=== PATIENT | male | born 1940 | race Caucasian/White ===

== ENCOUNTER 2017-07-18 01:10 | Inpatient (IN) | payer MEDICARE, OTHER ==
[~2017-07-18] VITALS: Ht 162.6 cm; Wt 56.0 kg
[2017-07-18] VITALS (26 sets, daily range): BP systolic 83–191; BP diastolic 58–102; PULSE 66–134; RESP 14–28; TEMP 97.5–101.9; O2SAT 91–100
[~2017-07-18 01:10] MED LIST: ALBU0.086 NEB; ALLE10TA12 PO; ASPI1TAB7 PO; ATOR40TA PO; BENZ100 PO; CALTCHW4 PO; DORZO2%O LEFT EYE; GUAI600 PO; LATA0.00 EACH EYE; LEVA750T PO; METO50TA PO; PERI8.6T PO; PRED20 PO; RANI150 PO; ROBIDMS PO; SYMB160A INH; THERM PO; TIOT18I INH; Z.0.OXYGENDME NC; [UNRECOGNIZED DRUG - CODE] PO
[2017-07-18 01:56] LABS: AUTOMATED NEUTROPHIL # 17.7 TH/MM3 (1.8-7.7); BASOPHIL # 0.1 TH/MM3 (0-0.2); BASOPHIL % 0.7 % (0.0-2.0); EOSINOPHIL # 0.1 TH/MM3 (0-0.4); EOSINOPHIL % 0.3 % (0.0-4.0); HEMOGLOBIN 15.4 GM/DL (13.0-17.0); LYMPH % 9.2 % (9.0-44.0); MEAN CELL VOLUME 92.2 FL (80.0-100.0); MEAN CORPUSCULAR HEMOGLOBIN 30.9 PG (27.0-34.0); MEAN CORPUSCULAR HGB CONC 33.5 % (32.0-36.0); MONO % 6.5 % (0.0-8.0); MONOCYTE # 1.4 TH/MM3 (0-0.9); NEUT % 83.3 % (16.0-70.0); PLATELET COUNT 302 TH/MM3 (150-450); RED BLOOD COUNT 4.99 MIL/MM3 (4.50-5.90); RED CELL DISTRIBUTION WIDTH 14.5 % (11.6-17.2); WHITE BLOOD COUNT 21.3 TH/MM3 (4.0-11.0)
--- NOTE | 2017-07-18 02:02 | RADRPT ---
EXAM DATE/TIME: 07/18/2017 01:46 [facility] COMPARISON: CHEST PA & LAT, September 22, 2014, 20:48. CHEST SINGLE AP, September 30, 2015, 13:23. INDICATIONS : Wheezing. MEDICAL HISTORY : Hypertension. Chronic obstructive pulmonary disease. Diabetes mellitus type II. SURGICAL HISTORY : None. ENCOUNTER: Initial ACUITY: 1 day PAIN SCORE: 0/10 LOCATION: Bilateral chest FINDINGS: The lungs are clear without infiltrate, nodule, or mass. On the lateral projection there is irregular density overlapping the cardiac shadow slightly different as compared to the prior study from 2014, however probably overlap of pulmonary vasculature. Chronic COPD is identified with scattered areas of scarring in the lungs. There is no appreciable pleural effusion for technique. Heart and mediastin um are unremarkable. CONCLUSION: No acute cardiopulmonary disease. Kira David MD on July 18, 2017 at 1:59 Board Certified Radiologist. This report was verified electronically.
[2017-07-18 02:05] LABS: CHLORIDE 103 MEQ/L (98-107); SODIUM (NA) 138 MEQ/L (136-145)
[2017-07-18] MEDS ORDERED: PRED10 PO (02:05)
[2017-07-18] MEDS ORDERED: ATOR40TA16 PO (02:07)
[2017-07-18] MEDS ORDERED: SPIRCAP INH (02:07)
[2017-07-18 02:08] LABS: CALCIUM 9.5 MG/DL (8.5-10.1)
[2017-07-18 02:09] LABS: ALBUMIN 3.2 GM/DL (3.4-5.0); BICARBONATE 28.5 MEQ/L (21.0-32.0); BLOOD UREA NITROGEN 18 MG/DL (7-18); GLUCOSE,RANDOM 104 MG/DL (74-106); MAGNESIUM 1.9 MG/DL (1.5-2.5)
[2017-07-18] MEDS ORDERED: SYMB160A INH (02:11)
[2017-07-18 02:12] LABS: ALT (GPT) 29 U/L (12-78); AST (GOT) 22 U/L (15-37); CREATININE 0.97 MG/DL (0.60-1.30); GLOMERULAR FILTRATION RATE 76 ML/MIN (>89)
[2017-07-18 02:13] LABS: BANDS 9 % (0-6); LYMPHOCYTES 10 % (9-44); MONOCYTES 6 % (0-8); NEUTROPHIL # MANUAL DIFF 17.9 TH/MM3 (1.8-7.7); POLYS (SEG NEUTROPHILS) 75 % (16-70); TOTAL BILIRUBIN ADULT 0.4 MG/DL (0.2-1.0)
[2017-07-18 02:14] LABS: TOTAL PROTEIN 7.5 GM/DL (6.4-8.2)
[2017-07-18 02:15] LABS: ALKALINE PHOSPHATASE 103 U/L (45-117)
[2017-07-18] MEDS ORDERED: DOCU100C15 PO (02:22)
[2017-07-18] MEDS ORDERED: METO1TAB43 PO (02:22)
[2017-07-18 02:50] LABS: BILIRUBIN, URINE NEG (NEG); BLOOD, URINE NEG (NEG); GLUCOSE,URINE NEG (NEG); KETONE, URINE NEG (NEG); NITRITE,URINE NEG (NEG); PH, URINE 5.5 (5.0-8.5); URINE LEUKOCYTE ESTERASE NEG (NEG)
[2017-07-18 02:53] LABS: URINE COLOR YELLOW (YELLW/STRAW)
[2017-07-18 02:54] LABS: RBC, URINE 0-2 /hpf (0-3); SQUAMOUS EPITHELIAL CELL URINE 0-5 /hpf (0-5); WBC, URINE 0-2 /hpf (0-5)
--- NOTE | 2017-07-18 03:10 | PD ---
HPI Chief Complaint: Respiratory Symptoms Time Seen by Provider: 01:20 Travel History International Travel<30 days: No Contact w/Intl Traveler<30days: No Traveled to known affect area: No History of Present Illness HPI The patient is a 76-year-old male who has a history of COPD and is followed by the CT for his COPD. He no longer smokes. He sees Roshan Bashir in [place] through the CT. He developed bronchitis and then pneumonia in March and 2 weeks [address] and saw Dr[address] Bashir and he was apparently free of pneumonia with a normal CT scan. Tonight he started getting short of breath with a dry cough and fever and he was developing the same symptoms that he gets with bronchitis. The patient completed the amoxicillin but is still on prednisone. The patient refuses albuterol treatments. He states they make him worse. He refused him in the field and refused them here. PFSH Past Medical History Hx Anticoagulant Therapy: Yes (asa 81mg) Arthritis: Yes Asthma: No Heart Rhythm Problems: No Cancer: No Cardiovascular Problems: Yes (htn on meds, hx of OK) High Cholesterol: Yes Chest Pain: No Congestive Heart Failure: No COPD: Yes Cerebrovascular Accident: No Diabetes: Yes (pre-diabetes) Patient Takes Glucophage: No Diminished Hearing: No Gastrointestinal Disorders: Yes (SPASTIC COLON) Glaucoma: Yes Genitourinary: No Headaches: No Hypertension: Yes Immune Disorder: No Implanted Vascular Access Dvce: No Musculoskeletal: No Neurologic: No Psychiatric: No Reproductive: No Respiratory: Yes (copd uses oxygen at home) Migraines: No Seizures: No Sleep Apnea: No Tetanus Vaccination: < 5 Years Influenza Vaccination: Yes Past Surgical History Abdominal Surgery: No Cardiac Surgery: No Ear Surgery: No Endocrine Surgery: No Eye Surgery: No Genitourinary Surgery: No Gynecologic Surgery: No Neurologic Surgery: No Oral Surgery: No Thoracic Surgery: No Tonsillectomy: Yes Other Surgery: Yes (tonsillectomy) Social History Alcohol Use: No Tobacco Use: No (QUIT 2002) Substance Use: No Allergies-Medications (Allergen,Severity, Reaction): Coded Allergies: albuterol (Verified Allergy, Intermediate, 07/18/17) bronchospasm codeine (Verified Allergy, Unknown, made him crazy, 07/18/17) Uncoded Allergies: perfume fragrances (Allergy, Severe, Shortness of Breath, 09/30/15) . Reported Meds & Prescriptions Reported Meds & Active Scripts Active Reported Metoprolol Succinate ER 24 HR (Metoprolol Succinate) 100 Mg Tab 100 Mg PO DAILY Docusate Sodium 100 Mg Cap 100 Mg PO BID Symbicort Inh (Budesonide/Formoterol Fumarate) 160-4.5 Mcg/Act Aero 2 Puff INH Q12HR Spiriva Handihaler (Tiotropium Inh) 18 Mcg Cap 18 Mcg INH DAILY 1 capsule = 18 mcg Atorvastatin (Atorvastatin Calcium) 40 Mg Tab 40 Mg PO HS Prednisone 10 Mg Tab 10 Mg PO DAILY Review of Systems Except as stated in HPI: all other systems reviewed are Neg Physical Exam Narrative GENERAL: The patient is alert, oriented 3 in moderate respiratory distress initially. After oxygen the patient was much more comfortable. His vital signs show temperature 102.9, blood pressure 191/102, pulse rate of 134 and respirations 28 and oximetry on 3 L nasal cannula was 99%. On room air, his oximetry was 88%. SKIN: Focused skin assessment warm/dry. HEAD: Atraumatic. Normocephalic. EYES: Pupils equal and round. No scleral icterus. No injection or drainage. ENT: No nasal bleeding or discharge. Mucous membranes pink and moist. NECK: Trachea midline. No JVD. CARDIOVASCULAR: Regular rate and rhythm. No murmur appreciated. RESPIRATORY: No accessory muscle use. Clear to auscultation. Breath sounds equal but decreased bilaterally. GASTROINTESTINAL: Abdomen soft, non-tender, nondistended. Hepatic and splenic margins not palpable. MUSCULOSKELETAL: No obvious deformities. No clubbing. No cyanosis. No edema. NEUROLOGICAL: Awake and alert. No obvious cranial nerve deficits. Motor grossly within normal limits. Normal speech. PSYCHIATRIC: Appropriate mood and affect; insight and judgment normal. Data Data Last Documented VS Vital Signs Date Time Temp Pulse Resp B/P (MAP) Pulse Ox O2 Delivery O2 Flow Rate FiO2 07/18/17 03:20 98.6 99 22 133/88 (103) 96 Nasal Cannula 2.00 Orders Orders Sepsis Workup Initiated (07/18/17 ) Complete Blood Count With Diff (07/18/17 01:15) Comprehensive Metabolic Panel (07/18/17 01:15) Lactic Acid Sepsis Protocol (07/18/17 01:15) Blood Culture (07/18/17 01:15) Iv Access Insert/Monitor (07/18/17 01:15) Oxygen Administration (07/18/17 01:15) Oximetry (07/18/17 01:15) Blood Glucose (07/18/17 01:15) Chest, Pa & Lat (07/18/17 01:15) Ecg Monitoring (07/18/17 01:15) Electrocardiogram (07/18/17 01:15) Sepsis Workup Initiated (07/18/17 ) Electrocardiogram (07/18/17 01:20) Urinalysis - C+S If Indicated (07/18/17 01:20) Influenzae A/B Antigen (07/18/17 01:20) Arterial Blood Gas (Abg) (07/18/17 01:20) Magnesium (Mg) (07/18/17 01:15) Methylprednisolone So Succ Inj (Solumedr (07/18/17 06:00) Vancomycin Consult Pharmacy (Vancomycin (07/18/17 03:15) Cefepime Inj (Maxipime Inj) (07/18/17 04:00) Admit To Inpatient (07/18/17 ) Vital Signs (Adult) Q4H (07/18/17 03:01) Activity Oob With Assistance (07/18/17 03:01) Corridor [employer]evelopment Manager / Telemetry .CONTINUOUS (07/18/17 03:01) Intake + Output ELIDA.QSHIFT (07/18/17 03:01) Diet Heart Healthy (07/18/17 Breakfast) Sodium Chloride 0.9% Flush (Ns Flush) (07/18/17 03:15) Sodium Chloride 0.9% Flush (Ns Flush) (07/18/17 09:00) Ondansetron Inj (Zofran Inj) (07/18/17 03:15) Comprehensive Metabolic Panel (07/19/17 06:00) Complete Blood Count With Diff (07/19/17 06:00) Enoxaparin Inj (Lovenox Inj) (07/18/17 09:00) Acetaminophen (Tylenol) (07/18/17 03:15) Morphine Inj (Morphine Inj) (07/18/17 03:15) Docusate Sodium-Senna (Patsy-Colace) (07/18/17 09:00) Magnesium Hydroxide Liq (Milk Of Magnesi (07/18/17 03:15) Sennosides (Senokot) (07/18/17 03:15) Bisacodyl Supp (Dulcolax Supp) (07/18/17 03:15) Lactulose Liq (Lactulose Liq) (07/18/17 03:15) Inpatient Certification (07/18/17 ) Ipratropium Neb (Atrovent Neb) (07/18/17 03:15) Atorvastatin (Lipitor) (07/18/17 21:00) Budeson-Formot 160-4.5 Mcg Inh (Symbicor (07/18/17 09:00) Tiotropium Inh (Spiriva Inh) (07/18/17 09:00) Metoprolol Succinate Er (Toprol Xl) (07/18/17 09:00) Vancomycin 1 Gm/200 Ml Inj (Vancomycin 1 (07/18/17 05:00) Misc. Nursing Information (07/21/17 04:45) Sodium Chlor 0.9% 1000 Ml Inj (Ns 1000 M (07/18/17 03:30) Vancomycin Trough (07/21/17 04:45) Labs Laboratory Tests Test 07/18/17 01:41 07/18/17 01:58 07/18/17 02:27 White Blood Count 21.3 TH/MM3 Red Blood Count 4.99 MIL/MM3 Hemoglobin 15.4 GM/DL Hematocrit 46.0 % Mean Corpuscular Volume 92.2 FL Mean Corpuscular Hemoglobin 30.9 PG Mean Corpuscular Hemoglobin Concent 33.5 % Red Cell Distribution Width 14.5 % Platelet Count 302 TH/MM3 Mean Platelet Volume 9.0 FL Neutrophils (%) (Auto) 83.3 % Lymphocytes (%) (Auto) 9.2 % Monocytes (%) (Auto) 6.5 % Eosinophils (%) (Auto) 0.3 % Basophils (%) (Auto) 0.7 % Neutrophils # (Auto) 17.7 TH/MM3 Lymphocytes # (Auto) 2.0 TH/MM3 Monocytes # (Auto) 1.4 TH/MM3 Eosinophils # (Auto) 0.1 TH/MM3 Basophils # (Auto) 0.1 TH/MM3 CBC Comment AUTO DIFF Differential Total Cells Counted 100 Neutrophils % (Manual) 75 % Band Neutrophils % 9 % Lymphocytes % 10 % Monocytes % 6 % Neutrophils # (Manual) 17.9 TH/MM3 Differential Comment FINAL DIFF MANUAL Platelet Estimate NORMAL Platelet Morphology Comment NORMAL Red Cell Morphology Comment NORMAL Blood Urea Nitrogen 18 MG/DL Creatinine 0.97 MG/DL Random Glucose 104 MG/DL Total Protein 7.5 GM/DL Albumin 3.2 GM/DL Calcium Level 9.5 MG/DL Magnesium Level 1.9 MG/DL Alkaline Phosphatase 103 U/L Aspartate Amino Transf (AST/SGOT) 22 U/L Alanine Aminotransferase (ALT/SGPT) 29 U/L Total Bilirubin 0.4 MG/DL Sodium Level 138 MEQ/L Potassium Level 3.4 MEQ/L Chloride Level 103 MEQ/L Carbon Dioxide Level 28.5 MEQ/L Anion Gap 7 MEQ/L Estimat Glomerular Filtration Rate 76 ML/MIN Lactic Acid Level 1.0 mmol/L Blood Gas Puncture Site RT RADIAL Blood Gas Patient Temperature 98.6 Blood Gas HCO3 25 mmol/L Blood Gas Base Excess 1.3 mmol/L Blood Gas Oxygen Saturation 89 % Arterial Blood pH 7.46 Arterial Blood Partial Pressure CO2 36 mmHG Arterial Blood Partial Pressure O2 59 mmHG Arterial Blood Oxygen Content 18.1 Vol % Arterial Blood Carboxyhemoglobin 1.6 % Arterial Blood Methemoglobin 1.0 % Blood Gas Hemoglobin 14.5 G/DL Blood Gas Inspired Oxygen 21 % Urine Color YELLOW Urine Turbidity CLEAR Urine pH 5.5 Urine Specific Barnhart 1.015 Urine Protein NEG mg/dL Urine Glucose (UA) NEG mg/dL Urine Ketones NEG mg/dL Urine Occult Blood NEG Urine Nitrite NEG Urine Bilirubin NEG Urine Leukocyte Esterase NEG Urine RBC 0-2 /hpf Urine WBC 0-2 /hpf Urine Squamous Epithelial Cells 0-5 /hpf Urine Bacteria NONE /hpf Microscopic Urinalysis Comment CULT NOT INDICATED MDM Medical Decision Making Medical Screen Exam Complete: Yes Emergency Medical Condition: Yes Medical Record Reviewed: Yes Interpretation(s) The blood gases on room air Differential Diagnosis Bronchitis, pneumonia, hypoxemia, sepsis, electrolyte disorder, influenza Narrative Course The patient has sepsis, bronchitis with hypoxemia Sepsis Criteria SIRS Criteria (2 or more): Temp > 100.9 or < 96.8, Heart rate over 90, RR > 20 or PaCO2 < 32, WBC > 74660, < 4000 or > 10% bands Sepsis Criteria (SIRS+source): Infect source susp/known Diagnosis Primary Impression: Sepsis Additional Impressions: COPD with acute exacerbation Hypoxemia Admitting Information Admitting Physician Requests: Admit Juan Luis Carlton MD Jul 18, 2017 03:10
[2017-07-18] MEDS ORDERED: BISACODYL 10 MG SUPP RECTAL PRN (03:15)
[2017-07-18] MEDS ORDERED: ONDANSETRON HCL 4 MG/2 ML VIAL IVP PRN (03:15)
[2017-07-18] MEDS ORDERED: ACETAMINOPHEN 325 MG TAB PO PRN (03:15)
[2017-07-18] MEDS ORDERED: Vancomycin Consult Pharmacy 1 EA OTHER SCH (03:15)
[2017-07-18] MEDS ORDERED: LACTULOSE SYRUP 20 GM/30 ML CUP PO PRN (03:15)
[2017-07-18] MEDS ORDERED: RESP: IPRATROPIUM 0.5 MG/2.5 ML NEB NEB PRN (03:15)
[2017-07-18] MEDS ORDERED: SENNOSIDES 8.6 MG TAB PO PRN (03:15)
[2017-07-18] MEDS ORDERED: MORPHINE SULFATE 2 MG/ML INJ IV PUSH PRN (03:15)
[2017-07-18] MEDS ORDERED: MAGNESIUM HYDROXIDE SUSP 30 ML CUP PO PRN (03:15)
[2017-07-18] MEDS ORDERED: SODIUM CHLORIDE 0.9% FLUSH 10 ML FLUSH IV FLUSH PRN (03:15)
[2017-07-18] MEDS: SODIUM CHLOR 0.9% 1000 ML INJ 1,000 ML IV SCH ×2 (03:45→04:50)
[2017-07-18] MEDS ORDERED: IOHEXOL 350 MG/ML 10 ML VIAL (for RAD DIAG) IVCONTRAST ONE (04:24)
[2017-07-18] MEDS: CEFEPIME INJ 1,000 MG in SODIUM CHLORIDE 0.9% INJ 100 ML IV SCH ×2 (04:26→15:54)
--- NOTE | 2017-07-18 04:34 | RADRPT ---
EXAM DATE/TIME: 07/18/2017 04:13 [facility] COMPARISON: No previous studies available for comparison. INDICATIONS : Shortness of breath. IV CONTRAST: 70 cc Omnipaque 350 (iohexol) IV RADIATION DOSE: 9.13 CTDIvol (mGy) MEDICAL HISTORY : Hypertension. Chronic obstructive pulmonary disease. Diabetes mellitus type 1. SURGICAL HISTORY : None. ENCOUNTER: Initial ACUITY: 1 day PAIN SCALE: 0/10 LOCATION: chest TECHNIQUE: Volumetric scanning of the chest was performed using a pulmonary embolism protocol MIP images were re constructed. Using automated exposure control and adjustment of the mA and/or kV according to patien t size, radiation dose was kept as low as reasonably achievable to obtain optimal diagnostic quality images. DICOM format image data is available electronically for review and comparison. Follow-up recommendations for detected pulmonary nodules are based at a minimum on nodule size and pa tient risk factors according to Fleischner Society Guidelines. FINDINGS: Approximately 4-5 mm nodule is seen left lower lobe anterolaterally with slight infiltrate within merna gula. There is no evidence for PE for technique.there is a tiny pericardial effusion with multiple si mple cysts in the liver. There is no pleural effusion. No appreciable pathological adenopathy is see n within the mediastinum. CONCLUSION: 1. There is no evidence for PE for technique. 2. Tiny pericardial effusion and slight infiltrate within lingula. 3. Left lower lobe nodule, repeat noncontrast chest CT is suggested in 6 months as a conservative fol low up. Kira David MD on July 18, 2017 at 4:29 Board Certified Radiologist. This report was verified electronically.
[2017-07-18] MEDS: VANCOMYCIN 1 GM/200 ML PREMIX IV SCH (04:56)
[2017-07-18] MEDS ORDERED: CHLORHEXIDINE GLUCONATE 2 % 1 PACK (2 CLOTHS)(extra cloths) TOPICAL PRN (05:30)
[2017-07-18] MEDS: methylPREDNISolone SOD SUCC 40 MG/1 ML VIAL IV PUSH SCH ×4 (05:46→23:17)
[2017-07-18] MEDS ORDERED: DORZ2SOL EACH EYE (07:09)
[2017-07-18] MEDS ORDERED: ASPI81TA23 PO (07:11)
[2017-07-18] MEDS ORDERED: LATA0.002 EACH EYE (07:12)
[2017-07-18] MEDS ORDERED: BRIM0.155 EACH EYE (07:13)
[2017-07-18] MEDS ORDERED: GUAI400T32 PO (07:17)
[2017-07-18] MEDS ORDERED: PILO1SOL5 EACH EYE (07:17)
[2017-07-18] MEDS: DOCUSATE SODIUM 50 MG/SENNA 8.6 MG TAB PO SCH ×3 (09:00→20:12)
[2017-07-18] MEDS ORDERED: TIOTROPIUM BROMIDE 18 MCG INH INH SCH (09:00)
[2017-07-18] MEDS ORDERED: METOPROLOL SUCCINATE 50 MG EXTENDED RELEASE TAB PO SCH (09:00)
[2017-07-18] MEDS: ENOXAPARIN SODIUM 40 MG/0.4 ML SYRINGE SQ SCH (09:42)
[2017-07-18] MEDS: SODIUM CHLORIDE 0.9% FLUSH 10 ML FLUSH IV FLUSH SCH ×2 (09:43→20:03)
[2017-07-18] MEDS: BUDESONIDE-FORMOTEROL 160/4.5 MCG INHALER INH SCH ×2 (09:43→20:02)
--- NOTE | 2017-07-18 13:24 | HHI.HP ---
[facility] Service [facility] Primary Care Physician [facility] Admission Diagnosis sepsis, COPD with acute exacerbation, hypoxemia Diagnoses: Chief Complaint: Shortness of breath Travel History International Travel<30 Days: No Contact w/Intl Traveler <30 Da: No Traveled to Known Affected Are: No History of Present Illness This patient is a 76-year-old gentleman with a history of COPD. Worsening over the last several years he has developed intolerance to albuterol. Since that time he has been not going well. He has had pneumonia and bronchitis and has been on antibiotics and steroids. Patient has come to the emergency room with complaints of increased shortness of breath. The patient says that he has increased dyspnea on exertion and has had some minimal sputum. He thinks every time he decreases his steroids his symptoms get worse. Recently has been on between 5 and 10 mg of prednisone. 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 He follows up at the [place] [facility] [place] he says he gets significant bronchospasm with albuterol and no longer is able to take nebulizer and or handheld inhaler although he is adherent with Spiriva and Symbicort. Patient comes to the emergency room and was hypoxemic. This seemed to improved Review of Systems Constitutional: DENIES: Diaphoretic episodes, Fatigue, Fever, Weight gain, Weight loss, Chills, Dizziness, Change in appetite, Night Sweats Endocrine: DENIES: Heat/cold intolerance, Polydipsia, Polyuria, Polyphagia Eyes: DENIES: Blurred vision, Diplopia, Eye inflammation, Eye pain, Vision loss , Photosensitivity, Double Vision Ears, nose, mouth, throat: DENIES: Tinnitus, Hearing loss, Vertigo, Nasal discharge, Oral lesions, Throat pain, Hoarseness, Ear Pain, Running Nose, Epistaxis, Sinus Pain, Toothache, Odynophagia Respiratory: COMPLAINS OF: Shortness of breath, DENIES: Apneas, Cough, Snoring , Wheezing, Hemoptysis, Sputum production Cardiovascular: COMPLAINS OF: Dyspnea on Exertion Gastrointestinal: DENIES: Abdominal pain, Black stools, Bloody stools, Constipation, Diarrhea, Nausea, Vomiting, Difficulty Swallowing, Anorexia Musculoskeletal: DENIES: Joint pain, Muscle aches, Stiffness, Joint Swelling, Back pain, Neck pain Integumentary: DENIES: Abnormal pigmentation, Nail changes, Pruritus, Rash Hematologic/lymphatic: DENIES: Bruising, Lymphadenopathy Immunologic/allergic: DENIES: Eczema, Urticaria Neurologic: DENIES: Abnormal gait, Headache, Localized weakness, Paresthesias, Seizures, Speech Problems, Tremor, Poor Balance Psychiatric: DENIES: Anxiety, Confusion, Mood changes, Depression, Hallucinations, Agitation, Suicidal Ideation, Homicidal Ideation, Delusions Except as stated in HPI: all other systems reviewed are Neg Past Family Social History Past Medical History COPD Hypertension Past Surgical History Tonsillectomy Reported Medications Reviewed in the EMR Allergies: Coded Allergies: albuterol (Verified Allergy, Intermediate, 07/18/17) bronchospasm codeine (Verified Allergy, Unknown, made him crazy, 07/18/17) Uncoded Allergies: perfume fragrances (Allergy, Severe, Shortness of Breath, 09/30/15) . Active Ordered Medications Reviewed in the EMR Family History Mother from a stroke or heart attack in her 50s, father from old age in his 80s Social History Retired [employer], no current tobacco although he does have a 20 year history of tobacco No alcohol Physical Exam Vital Signs Vital Signs Date Time Temp Pulse Resp B/P (MAP) Pulse Ox O2 Delivery O2 Flow Rate FiO2 07/18/17 12:35 94 Room Air 07/18/17 12:00 98.3 79 16 120/79 (93) 94 07/18/17 12:00 79 07/18/17 11:00 75 25 94/59 (71) 97 07/18/17 10:00 96 20 105/68 (80) 100 07/18/17 10:00 80 07/18/17 09:00 82 19 93/61 (72) 100 07/18/17 08:00 97 Nasal Cannula 2.00 07/18/17 08:00 96 Nasal Cannula 2.00 07/18/17 08:00 98.2 82 18 99/66 (77) 100 07/18/17 08:00 92 07/18/17 07:00 92 17 107/65 (79) 100 07/18/17 06:00 97.5 100 22 140/85 (103) 100 07/18/17 06:00 100 07/18/17 05:15 07/18/17 05:03 105 18 118/76 (90) 97 Nasal Cannula 2.00 07/18/17 04:15 100 18 143/79 (100) 97 Nasal Cannula 07/18/17 03:20 98.6 99 22 133/88 (103) 96 Nasal Cannula 2.00 07/18/17 03:13 98.6 108 22 133/88 (103) 94 Room Air 07/18/17 02:15 96 Nasal Cannula 2.00 07/18/17 01:20 97 Nasal Cannula 2.00 07/18/17 01:20 97 Nasal Cannula 2.00 07/18/17 01:16 28 97 Nasal Cannula 2.00 07/18/17 01:15 101.9 134 28 191/102 (131) 99 Physical Exam GENERAL: This is a thin but well-developed gentleman who has pursed lipped breathing with conversation and short of breath with minimal exertion SKIN: No rashes, ecchymoses or lesions. Cool and dry. HEAD: Atraumatic. Normocephalic. No temporal or scalp tenderness. EYES: Pupils equal round and reactive. Extraocular motions intact. No scleral icterus. No injection or drainage. ENT: Nose without bleeding, purulent drainage or septal hematoma. Throat without erythema, tonsillar hypertrophy or exudate. Uvula midline. Airway patent. NECK: Trachea midline. No JVD or lymphadenopathy. Supple, nontender, no meningeal signs. CARDIOVASCULAR: Regular rate and rhythm without murmurs, gallops, or rubs. RESPIRATORY: Decreased air flow but no wheezes. Bilateral air flow is equal GASTROINTESTINAL: Abdomen soft, non-tender, nondistended. No hepato-splenomegaly , or palpable masses. No guarding. MUSCULOSKELETAL: Extremities without clubbing, cyanosis, or edema. No joint tenderness, effusion, or edema noted. No calf tenderness. Negative Homans sign bilaterally. NEUROLOGICAL: Awake and alert. Cranial nerves II through XII intact. Motor and sensory grossly within normal limits. Five out of 5 muscle strength in all muscle groups. Normal speech. Laboratory Laboratory Tests Test 07/18/17 01:41 07/18/17 01:58 07/18/17 02:27 07/18/17 06:01 White Blood Count 21.3 Red Blood Count 4.99 Hemoglobin 15.4 Hematocrit 46.0 Mean Corpuscular Volume 92.2 Mean Corpuscular Hemoglobin 30.9 Mean Corpuscular Hemoglobin Concent 33.5 Red Cell Distribution Width 14.5 Platelet Count 302 Mean Platelet Volume 9.0 Neutrophils (%) (Auto) 83.3 Lymphocytes (%) (Auto) 9.2 Monocytes (%) (Auto) 6.5 Eosinophils (%) (Auto) 0.3 Basophils (%) (Auto) 0.7 Neutrophils # (Auto) 17.7 Lymphocytes # (Auto) 2.0 Monocytes # (Auto) 1.4 Eosinophils # (Auto) 0.1 Basophils # (Auto) 0.1 CBC Comment AUTO DIFF Differential Total Cells Counted 100 Neutrophils % (Manual) 75 Band Neutrophils % 9 Lymphocytes % 10 Monocytes % 6 Neutrophils # (Manual) 17.9 Differential Comment FINAL DIFF MANUAL Platelet Estimate NORMAL Platelet Morphology Comment NORMAL Red Cell Morphology Comment NORMAL Blood Urea Nitrogen 18 Creatinine 0.97 Random Glucose 104 Total Protein 7.5 Albumin 3.2 Calcium Level 9.5 Magnesium Level 1.9 Alkaline Phosphatase 103 Aspartate Amino Transf (AST/SGOT) 22 Alanine Aminotransferase (ALT/SGPT) 29 Total Bilirubin 0.4 Sodium Level 138 Potassium Level 3.4 Chloride Level 103 Carbon Dioxide Level 28.5 Anion Gap 7 Estimat Glomerular Filtration Rate 76 Lactic Acid Level 1.0 Blood Gas Puncture Site RT RADIAL Blood Gas Patient Temperature 98.6 Blood Gas HCO3 25 Blood Gas Base Excess 1.3 Blood Gas Oxygen Saturation 89 Arterial Blood pH 7.46 Arterial Blood Partial Pressure CO2 36 Arterial Blood Partial Pressure O2 59 Arterial Blood Oxygen Content 18.1 Arterial Blood Carboxyhemoglobin 1.6 Arterial Blood Methemoglobin 1.0 Blood Gas Hemoglobin 14.5 Blood Gas Inspired Oxygen 21 Urine Color YELLOW Urine Turbidity CLEAR Urine pH 5.5 Urine Specific [place] 1.015 Urine Protein NEG Urine Glucose (UA) NEG Urine Ketones NEG Urine Occult Blood NEG Urine Nitrite NEG Urine Bilirubin NEG Urine Leukocyte Esterase NEG Urine RBC 0-2 Urine WBC 0-2 Urine Squamous Epithelial Cells 0-5 Urine Bacteria NONE Microscopic Urinalysis Comment CULT NOT INDICATED Date/Time Source Procedure Growth Status 07/18/17 01:47 Blood Peripheral Aerobic Blood Culture Pending Received 07/18/17 01:47 Blood Peripheral Anaerobic Blood Culture Pending Received 07/18/17 01:41 Nasal Aspirate Influenza Types A,B Antigen (JAMILA) - Final NEGATIVE FOR FLU A AND B ANTIGEN.... Complete Result Diagram: 07/18/17 0141 07/18/17 [address] Angiography 07/18/17 0344 Signed Impressions: Service Date/Time: Tuesday, July 18, 2017 04:13 - CONCLUSION: 1. There is no evidence for PE for technique. 2. Tiny pericardial effusion and slight infiltrate within lingula. 3. Left lower lobe nodule, repeat noncontrast chest CT is suggested in 6 months as a conservative follow up. Kira David MD Chest X-Ray 07/18/17 0115 Signed Impressions: Service Date/Time: Tuesday, July 18, 2017 01:46 - CONCLUSION: No acute cardiopulmonary disease. Kira David MD Capjosé antonio VTE Risk Assessment Caprini VTE Risk Assessment: Mod/High Risk (score >= 2) Caprini Risk Assessment Model Point Value = 1 Point Value = 2 Point Value = 3 Point Value = 5 Age 41-60 Minor surgery BMI > 25 kg/m2 Swollen legs Varicose veins or History of unexplained or recurrent spontaneous Oral contraceptives or hormone replacement Sepsis (< 1 month) Serious lung disease, including pneumonia (< 1 month) Abnormal pulmonary function Acute myocardial infarction Congestive heart failure (< 1 month) History of inflammatory bowel disease Medical patient at bed rest Age 61-74 Arthroscopic surgery Major open surgery (> 45 min) Laparoscopic surgery (> 45 min) Malignancy Confined to bed (> 72 hours) Immobilizing plaster cast Central venous access Age >= 75 History of VTE Family history of VTE Factor V Leiden Prothrombin [id number] Lupus anticoagulant Anticardiolipin antibodies Elevated serum homocysteine Heparin-induced thrombocytopenia Other congenital or acquired thrombophilia Stroke (< 1 month) Elective arthroplasty Hip, pelvis, or leg fracture Acute spinal cord injury (< 1 month) Prophylaxis Regimen Total Risk Factor Score Risk Level Prophylaxis Regimen 0-1 Low Early ambulation 2 Moderate Order ONE of the following: *Sequential Compression Device (SCD) *Heparin 5000 units SQ BID 3-4 Higher Order ONE of the following medications: *Heparin 5000 units SQ TID *Enoxaparin/Lovenox 40 mg SQ daily (WT < 150 kg, CrCl > 30 mL/min) *Enoxaparin/Lovenox 30 mg SQ daily (WT < 150 kg, CrCl > 10-29 mL/min) *Enoxaparin/Lovenox 30 mg SQ BID (WT < 150 kg, CrCl > 30 mL/min) AND/OR *Sequential Compression Device (SCD) 5 or more Highest Order ONE of the following medications: *Heparin 5000 units SQ TID (Preferred with Epidurals) *Enoxaparin/Lovenox 40 mg SQ daily (WT < 150 kg, CrCl > 30 mL/min) *Enoxaparin/Lovenox 30 mg SQ daily (WT < 150 kg, CrCl > 10-29 mL/min) *Enoxaparin/Lovenox 30 mg SQ BID (WT < 150 kg, CrCl > 30 mL/min) AND *Sequential Compression Device (SCD) Assessment and Plan Problem List: (1) COPD with acute exacerbation ICD Code: J44.1 - Chronic obstructive pulmonary disease with (acute) exacerbation Status: Acute Plan: Patient with with COPD exacerbation is difficult to treat. Continue with IV steroids, Symbicort and Spiriva. Patient education. Pulmonary consult is pending Patient with gross hypoxemia and dyspnea with minimal exertion conversation (2) HTN (hypertension) ICD Code: I10 - HTN (hypertension) Status: Acute Plan: With hypotension, patient says his blood pressure is quite labile Code Status full code Discussed Condition With Patient, spouse, OCCUPATIONAL HEALTH TECHNICIAN Physician Certification 2 Midnight Certification Type: Admission for Inpatient Services Order for Inpatient Services The services are ordered in accordance with Medicare regulations or non- Medicare payer requirements, as applicable. In the case of services not specified as inpatient-only, they are appropriately provided as inpatient services in accordance with the 2-midnight benchmark. Estimated LOS (days): 3 3 days is the estimated time the patient will need to remain in the hospital, assuming treatment plan goals are met and no additional complications. Post-Hospital Plan: Karolyn Edmonds MD Jul 18, 2017 13:24
--- NOTE | 2017-07-18 13:51 | EKG ---
Date Performed: 07/18/2017 Time Performed: 01:36:20 PTAGE: 76 years EKG: SINUS TACHYCARDIA MARKED RIGHT AXIS DEVIATION INTRAVENTRICULAR CONDUCTION DELAY INFERIOR MY OCARDIAL INFARCTION AGE UNDETERMINATE ABNORMAL ECG PREVIOUS TRACING : 09/23/2015 17.29 DOCTOR: Nino Lugo Interpretating Date/Time 07/18/2017 13:49:49
[2017-07-18] MEDS: RESP: IPRATROPIUM 0.5 MG/2.5 ML NEB NEB SCH (16:45)
[2017-07-18] MEDS ORDERED: TOPR50TA PO (17:07)
[2017-07-18] MEDS ORDERED: ATOR20TA15 PO (17:07)
[2017-07-18] MEDS: DORZOLAMIDE 2% OPTH SOLN 200 DROP/10 ML BTLO EACH EYE SCH (17:20)
[2017-07-18] MEDS: BRIMONIDINE TARTRATE 0.15% OPHT SOLN 5 ML BTL EACH EYE SCH (17:21)
[2017-07-18] MEDS: PILOCARPINE HCL 1% OPHT SOLN 15 ML BTL EACH EYE SCH (17:23)
--- NOTE | 2017-07-18 17:40 | MB ---
cc: Ethan HUSAIN M.D. DATE OF CONSULTATION 07/18/17 HISTORY OF PRESENT ILLNESS Mr. Garcia is a 76-year-old white male with a longstanding history of COPD. 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 He was seen there two weeks ago recovering from a pneumonia that he had in late April and May of last year. He is normally on Spiriva and Symbicort but cannot use albuterol as a rescue inhaler. Apparently, he has bad reactions to it. In any event, he was feeling much better until two or three days ago when he began to get more short of breath. Unfortunately, he cannot really help himself at home because he has no rescue inhaler so he usually just tries to get over it, but he felt more short of breath and came into the emergency room here today. Cough is present but nonproductive. No hemoptysis. No purulent sputum or fever. On admission to the emergency room, he had a CT angiogram because of the acute onset of symptoms. No evidence for pulmonary embolism, a very tiny pericardial effusion. Minimal infiltrate in the lingula, possibly residual with this pneumonia recently, and a small left lower lobe nodule that can be followed up with his pulmonary physician at the [place]. We are not certain if that has been present previously. He did have an elevated white count 21,000 and is being worked up for possible septicemia. He was on prednisone as an outpatient, which may be a contributing factor. His initial arterial blood gases on room air pO2 was 59, pH 7.4, pCO2 36. He says that he has never qualified for oxygen in the past. O2 saturations are usually in the lower 90s, although occasionally with exertion he has been documented in the 80s. He was a former smoker of 20-30 pack-years but quit smoking years ago. He has been hospitalized here for COPD exacerbations in 2014, 2015 and last time August of 2015. No significant prior cardiovascular history. Apparently, he has been seen by a media relations manager in the past but no ischemic heart disease or congestive heart failure. Currently, at rest, comfortable, seems a little anxious and apprehensive. PAST MEDICAL HISTORY 1. Hypertension, 2. Previous tonsillectomy. ALLERGIES ALBUTEROL CODEINE - NEUROLOGIC EFFECTS. He is sensitive to certain fragrances and aromas, particularly strong perfumes. SOCIAL HISTORY He is living with his . Retired from the . Smoking as noted. No alcohol use. REVIEW OF SYSTEMS Denies chest pain or hemoptysis. No notable fever. No swelling in his legs. No change in bowel habits. MEDICATIONS Reviewed in the EMR. PHYSICAL EXAMINATION GENERAL: Thin white male, a bit anxious and apprehensive, but in no distress. VITAL SIGNS: 98 degrees, pulse is 80, respirations 18-22, blood pressure 115/66 and his sat is 93% on room air. HEENT: Sclerae anicteric. Mucous membranes are moist. NECK: Neck veins are flat. CHEST: Diminished but clear. No wheezes or rales. No congestion. HEART: Regular rhythm. No harsh murmur. EXTREMITIES: No peripheral edema or cyanosis. DISCUSSION Mr. Garcia presents with a well-known history of COPD/emphysema with increasing dyspnea. CTA is otherwise unrevealing. No thromboembolic disease or pneumonia. No fluid or CHF, small nodule which may be of no consequence, could be followed up as an outpatient. Part of the problem here is he does not seem to have anything to use for a rescue inhaler and gets apprehensive. We are going to try him on Atrovent by nebulization while he is here in the hospital and see if that is effective and well tolerated so that he could then consider using that as an outpatient. He has been started on sepsis protocol until his cultures are reported. Otherwise, we will continue his regular treatments at home, Symbicort and Spiriva with p.r.n. Atrovent. Monitor him in the intensive care unit today and, if stable, he could go out tomorrow. Further diagnostic and/or therapeutic intervention will depend on his ongoing clinical course and response to therapy. R. MD MILENA Cronin/ /3:22 PM /5:26 PM
[2017-07-18] MEDS ORDERED: PILOCARPINE HCL 1% OPHT SOLN 15 ML BTL EACH EYE SCH (18:00)
[2017-07-18] MEDS: DOCUSATE SODIUM 100 MG CAP PO SCH ×2 (20:02→20:12)
[2017-07-18] MEDS: ATORVASTATIN 20 MG TAB PO SCH (20:03)
[2017-07-18] MEDS: LATANOPROST 0.005% OPHT SOLN 2.5 ML BTL EACH EYE SCH (20:03)
[2017-07-18] MEDS ORDERED: ATORVASTATIN 40 MG TAB PO SCH (21:00)
[2017-07-19] VITALS (14 sets, daily range): BP systolic 82–121; BP diastolic 54–74; PULSE 54–90; RESP 13–22; TEMP 98.1–98.8; O2SAT 93–97
[2017-07-19] MEDS: CHLORHEXIDINE GLUCONATE 2 % 1 PACK (2 CLOTHS)(taper/protocol) TOPICAL SCH (03:48)
[2017-07-19] MEDS: CEFEPIME INJ 1,000 MG in SODIUM CHLORIDE 0.9% INJ 100 ML IV SCH ×2 (03:48→15:47)
[2017-07-19] MEDS: VANCOMYCIN 1 GM/200 ML PREMIX IV SCH (05:14)
[2017-07-19] MEDS: methylPREDNISolone SOD SUCC 40 MG/1 ML VIAL IV PUSH SCH (05:32)
[2017-07-19 05:49] LABS: BASOPHIL % 0.2 % (0.0-2.0); HEMATOCRIT 36.4 % (39.0-51.0); LYMPHOCYTE # 0.7 TH/MM3 (1.0-4.8); MEAN CELL VOLUME 92.9 FL (80.0-100.0); MEAN CORPUSCULAR HEMOGLOBIN 30.5 PG (27.0-34.0); MEAN CORPUSCULAR HGB CONC 32.9 % (32.0-36.0); MEAN PLATELET VOLUME 8.7 FL (7.0-11.0); MONO % 4.7 % (0.0-8.0); MONOCYTE # 1.1 TH/MM3 (0-0.9); NEUT % 92.1 % (16.0-70.0); PLATELET COUNT 233 TH/MM3 (150-450); RED BLOOD COUNT 3.91 MIL/MM3 (4.50-5.90); RED CELL DISTRIBUTION WIDTH 14.4 % (11.6-17.2); WHITE BLOOD COUNT 22.8 TH/MM3 (4.0-11.0)
[2017-07-19 06:02] LABS: CHLORIDE 109 MEQ/L (98-107); SODIUM (NA) 141 MEQ/L (136-145)
[2017-07-19 06:15] LABS: ALBUMIN 2.2 GM/DL (3.4-5.0); ALKALINE PHOSPHATASE 63 U/L (45-117); ALT (GPT) 18 U/L (12-78); AST (GOT) 12 U/L (15-37); BICARBONATE 25.2 MEQ/L (21.0-32.0); BLOOD UREA NITROGEN 19 MG/DL (7-18); CALCIUM 7.5 MG/DL (8.5-10.1); GLOMERULAR FILTRATION RATE 110 ML/MIN (>89); GLUCOSE,RANDOM 131 MG/DL (74-106); TOTAL BILIRUBIN ADULT 0.3 MG/DL (0.2-1.0); TOTAL PROTEIN 5.6 GM/DL (6.4-8.2)
[2017-07-19] MEDS: RESP: IPRATROPIUM 0.5 MG/2.5 ML NEB NEB SCH (07:31)
[2017-07-19] MEDS: ENOXAPARIN SODIUM 40 MG/0.4 ML SYRINGE SQ SCH (08:32)
[2017-07-19] MEDS: ASPIRIN EC 81 MG TABEC PO SCH (08:32)
[2017-07-19] MEDS: DOCUSATE SODIUM 50 MG/SENNA 8.6 MG TAB PO SCH ×2 (08:32→20:43)
[2017-07-19] MEDS: DOCUSATE SODIUM 100 MG CAP PO SCH ×2 (08:33→20:43)
[2017-07-19] MEDS: SODIUM CHLORIDE 0.9% FLUSH 10 ML FLUSH IV FLUSH SCH ×2 (08:33→20:42)
[2017-07-19] MEDS: TIOTROPIUM BROMIDE 18 MCG INH INH SCH (08:33)
[2017-07-19] MEDS: BUDESONIDE-FORMOTEROL 160/4.5 MCG INHALER INH SCH ×2 (08:33→20:41)
[2017-07-19] MEDS: DORZOLAMIDE 2% OPTH SOLN 200 DROP/10 ML BTLO EACH EYE SCH ×3 (08:34→17:11)
[2017-07-19] MEDS: SODIUM CHLOR 0.9% 1000 ML INJ 1,000 ML IV SCH ×2 (08:34→20:43)
[2017-07-19] MEDS: PILOCARPINE HCL 1% OPHT SOLN 15 ML BTL EACH EYE SCH ×3 (08:34→17:11)
[2017-07-19] MEDS: BRIMONIDINE TARTRATE 0.15% OPHT SOLN 5 ML BTL EACH EYE SCH ×3 (08:34→17:11)
--- NOTE | 2017-07-19 08:48 | HHI.PR ---
Subjective Remarks Patient seen and evaluated in follow-up for COPD exacerbation. He did tolerate Atrovent without difficulty. He slept well but felt the steroids have done him a world of good. His blood pressure is running a bit low although he did receive 100 mg metoprolol instead of 50 mg he normally takes. Objective Vitals Vital Signs Date Time Temp Pulse Resp B/P (MAP) Pulse Ox O2 Delivery O2 Flow Rate FiO2 07/19/17 07:37 94 21 07/19/17 06:00 54 14 91/62 (72) 97 07/19/17 06:00 54 07/19/17 05:00 62 14 91/61 (71) 97 07/19/17 04:00 74 07/19/17 04:00 98.6 74 20 100/74 (83) 95 07/19/17 03:00 60 13 86/54 (65) 97 07/19/17 02:00 64 07/19/17 02:00 64 14 82/57 (65) 97 07/19/17 01:00 62 15 91/59 (70) 97 07/19/17 00:00 98.8 62 15 86/58 (67) 97 07/19/17 00:00 62 07/18/17 23:00 68 14 94/59 (71) 96 07/18/17 22:00 66 14 84/58 (67) 97 07/18/17 22:00 66 07/18/17 21:00 68 16 83/58 (66) 97 07/18/17 20:11 92 21 07/18/17 20:00 72 07/18/17 20:00 72 15 83/58 (66) 93 07/18/17 19:00 98.6 80 20 90/58 (69) 94 18 19:00 Nasal Cannula 2.00 07/18/17 18:00 72 24 102/69 (80) 92 07/18/17 18:00 72 07/18/17 17:00 72 23 107/66 (80) 93 07/18/17 16:00 68 07/18/17 16:00 98.1 68 16 92/65 (74) 94 07/18/17 15:00 84 18 108/66 (80) 93 07/18/17 14:00 80 07/18/17 14:00 78 20 105/63 (77) 93 07/18/17 13:00 80 23 115/66 (82) 91 07/18/17 12:35 94 Room Air 07/18/17 12:00 98.3 79 16 120/79 (93) 94 07/18/17 12:00 79 07/18/17 11:00 75 25 94/59 (71) 97 07/18/17 10:00 96 20 105/68 (80) 100 07/18/17 10:00 80 07/18/17 09:00 82 19 93/61 (72) 100 I/O 07/18/17 07/18/17 07/18/17 07/19/17 07/19/17 07/19/17 07:00 15:00 23:00 07:00 15:00 23:00 Intake Total 2200 ml 720 ml 540 ml Output Total 1100 ml 400 ml Balance 2200 ml -380 ml 140 ml Intake Oral 720 ml 240 ml IV Total 2200 ml 300 ml Output Urine Total 1100 ml 400 ml # Bowel Movements 0 1 Result Diagram: 07/19/17 0530 07/19/17 0530 Objective Remarks GENERAL: This is a well-nourished, well-developed patient, in no apparent distress. CARDIOVASCULAR: Regular rate and rhythm without murmurs, gallops, or rubs. RESPIRATORY: Clear to auscultation. Breath sounds equal bilaterally. No wheezes , rales, or rhonchi. GASTROINTESTINAL: Abdomen soft, non-tender, nondistended. Normal active bowel sounds MUSCULOSKELETAL: Extremities without clubbing, cyanosis, or edema. NEURO: Alert & Oriented x4 to person, place, time, situation. Moves all ext x4 A/P Problem List: (1) COPD with acute exacerbation ICD Code: J44.1 - Chronic obstructive pulmonary disease with (acute) exacerbation Status: Acute Plan: Patient with with COPD exacerbation improved on IV steroids and with Atrovent nebulizers Subjective clinical improvement with questionable hypoxemia overnight Pulmonary consultation appreciated (2) HTN (hypertension) ICD Code: I10 - HTN (hypertension) Status: Acute Plan: With hypotension, patient says his blood pressure is quite labile . We'll hold metoprolol today (3) Leukocytosis ICD Code: D72.829 - Elevated white blood cell count, unspecified Plan: Patient with hypoxemia, tachycardia, leukocytosis and hypotension which may or may not be iatrogenic Patient meets criteria for sepsis present on admission Follow-up blood cultures Continue empiric sepsis treatment with IV vancomycin and cefepime (4) Hypokalemia ICD Code: E87.6 - Hypokalemia Plan: Improved after replacement Discharge Planning Pending improvement, possibly in Karolyn Ellison MD Jul 19, 2017 08:48
[2017-07-19] MEDS: predniSONE 10 MG TAB PO SCH (13:25)
[2017-07-19] MEDS ORDERED: methylPREDNISolone SOD SUCC 40 MG/1 ML VIAL IV PUSH SCH (14:00)
[2017-07-19] MEDS: LATANOPROST 0.005% OPHT SOLN 2.5 ML BTL EACH EYE SCH (20:40)
[2017-07-19] MEDS: ATORVASTATIN 20 MG TAB PO SCH (20:42)
[2017-07-20] VITALS (8 sets, daily range): BP systolic 116–138; BP diastolic 64–75; PULSE 64–88; RESP 12–21; TEMP 98–98.6; O2SAT 95–98
[2017-07-20] MEDS: CHLORHEXIDINE GLUCONATE 2 % 1 PACK (2 CLOTHS)(taper/protocol) TOPICAL SCH ×2 (04:00→19:32)
[2017-07-20] MEDS: CEFEPIME INJ 1,000 MG in SODIUM CHLORIDE 0.9% INJ 100 ML IV SCH (04:04)
[2017-07-20] MEDS: SODIUM CHLOR 0.9% 1000 ML INJ 1,000 ML IV SCH (04:04)
[2017-07-20] MEDS ORDERED: VANCOMYCIN 1,000 MG/NS 250 ML IV SCH ×2 (05:00)
[2017-07-20] MEDS: RESP: IPRATROPIUM 0.5 MG/2.5 ML NEB NEB SCH (08:45)
[2017-07-20] MEDS: TIOTROPIUM BROMIDE 18 MCG INH INH SCH (09:00)
[2017-07-20] MEDS: BUDESONIDE-FORMOTEROL 160/4.5 MCG INHALER INH SCH ×2 (09:00→20:46)
[2017-07-20] MEDS: PILOCARPINE HCL 1% OPHT SOLN 15 ML BTL EACH EYE SCH ×3 (09:00→20:48)
[2017-07-20] MEDS: BRIMONIDINE TARTRATE 0.15% OPHT SOLN 5 ML BTL EACH EYE SCH ×3 (09:00→20:47)
[2017-07-20] MEDS: DOCUSATE SODIUM 50 MG/SENNA 8.6 MG TAB PO SCH ×2 (09:00→20:43)
[2017-07-20] MEDS: DOCUSATE SODIUM 100 MG CAP PO SCH ×2 (09:00→20:43)
[2017-07-20] MEDS: SODIUM CHLORIDE 0.9% FLUSH 10 ML FLUSH IV FLUSH SCH ×2 (09:00→20:43)
[2017-07-20] MEDS: DORZOLAMIDE 2% OPTH SOLN 200 DROP/10 ML BTLO EACH EYE SCH ×3 (09:00→20:46)
[2017-07-20] MEDS: METOPROLOL SUCCINATE 50 MG EXTENDED RELEASE TAB PO SCH (09:45)
[2017-07-20] MEDS: predniSONE 10 MG TAB PO SCH (09:45)
[2017-07-20] MEDS: ASPIRIN EC 81 MG TABEC PO SCH (09:45)
[2017-07-20] MEDS: ENOXAPARIN SODIUM 40 MG/0.4 ML SYRINGE SQ SCH (09:46)
[2017-07-20] MEDS ORDERED: OXYGENDME NAS.CANULA (11:39)
[2017-07-20] MEDS ORDERED: DOXY100C PO (13:12)
--- NOTE | 2017-07-20 13:13 | HHI.PR ---
Subjective Remarks Patient seen today in follow-up for COPD exacerbation, hypoxemia at 86% overnight and with walk test. No new complaints today until later this morning with the patient began complaining of "bronchospasm" after his Atrovent. His is in the room and said it was "terrified". Patient was not hypoxemic. On exam his lungs are clear. Objective Vitals Vital Signs Date Time Temp Pulse Resp B/P (MAP) Pulse Ox O2 Delivery O2 Flow Rate FiO2 07/20/17 12:00 98.6 88 17 119/75 (90) 98 07/20/17 08:46 97 Nasal Cannula 1.00 07/20/17 08:00 98.0 88 21 138/71 (93) 98 07/20/17 07:00 Nasal Cannula 1.00 98 07/20/17 04:00 83 07/20/17 04:00 98.0 70 16 116/64 (81) 98 07/20/17 00:00 98.0 64 12 122/67 (85) 95 07/20/17 00:00 64 07/19/17 20:59 97 Nasal Cannula 1.00 07/19/17 20:00 98.6 90 20 121/73 (89) 96 07/19/17 20:00 86 07/19/17 20:00 Nasal Cannula 1.00 98 07/19/17 16:00 87 07/19/17 16:00 98.1 87 15 118/58 (78) 96 I/O 07/19/17 07/19/17 07/19/17 07/20/17 07/20/17 07/20/17 07:00 15:00 23:00 07:00 15:00 23:00 Intake Total 540 ml 1050 ml 1948 ml Output Total 400 ml 850 ml 875 ml Balance 140 ml 200 ml 1073 ml Intake Oral 240 ml 1050 ml 400 ml IV Total 300 ml 1548 ml Output Urine Total 400 ml 850 ml 875 ml # Voids 4 # Bowel Movements 1 1 1 Result Diagram: 07/19/17 0530 07/19/17 0530 Objective Remarks GENERAL: This is a well-nourished, well-developed patient, in no apparent distress. CARDIOVASCULAR: Regular rate and rhythm without murmurs, gallops, or rubs. RESPIRATORY: Clear to auscultation. Breath sounds equal bilaterally. No wheezes , rales, or rhonchi. GASTROINTESTINAL: Abdomen soft, non-tender, nondistended. Normal active bowel sounds MUSCULOSKELETAL: Extremities without clubbing, cyanosis, or edema. NEURO: Alert & Oriented x4 to person, place, time, situation. Moves all ext x4 A/P Problem List: (1) COPD with acute exacerbation ICD Code: J44.1 - Chronic obstructive pulmonary disease with (acute) exacerbation Status: Acute Plan: Patient with with COPD exacerbation improved on po steroids and with Atrovent nebulizers Patient appears to have bronchospasm per his report (this was prior to the administration of metoprolol). Patient said he felt tightness in his chest and became very anxious after being on the commode. Pulmonary consult appreciated Patient has failed a walk test will require oxygen at home (2) HTN (hypertension) ICD Code: I10 - HTN (hypertension) Status: Acute Plan: Metoprolol resumed his blood pressure has become more elevated (3) Leukocytosis ICD Code: D72.829 - Elevated white blood cell count, unspecified Plan: Overall improved We'll taper antibiotics (4) Hypokalemia ICD Code: E87.6 - Hypokalemia Plan: Improved after replacement Discharge Planning He is able to be discharged home however we will need clarification of discharge medications from pulmonary team Karolyn Escobedo MD Jul 20, 2017 13:13
[2017-07-20 14:09] LABS: AUTOMATED NEUTROPHIL # 17.1 TH/MM3 (1.8-7.7); BASOPHIL # 0.1 TH/MM3 (0-0.2); BASOPHIL % 0.4 % (0.0-2.0); HEMATOCRIT 39.3 % (39.0-51.0); HEMOGLOBIN 13.1 GM/DL (13.0-17.0); LYMPH % 2.5 % (9.0-44.0); LYMPHOCYTE # 0.4 TH/MM3 (1.0-4.8); MEAN CORPUSCULAR HEMOGLOBIN 30.7 PG (27.0-34.0); MEAN CORPUSCULAR HGB CONC 33.3 % (32.0-36.0); MEAN PLATELET VOLUME 9.5 FL (7.0-11.0); MONO % 1.8 % (0.0-8.0); MONOCYTE # 0.3 TH/MM3 (0-0.9); NEUT % 95.3 % (16.0-70.0); PLATELET COUNT 252 TH/MM3 (150-450); RED BLOOD COUNT 4.27 MIL/MM3 (4.50-5.90); RED CELL DISTRIBUTION WIDTH 14.3 % (11.6-17.2); WHITE BLOOD COUNT 17.9 TH/MM3 (4.0-11.0)
[2017-07-20 14:46] LABS: BICARBONATE 25.8 MEQ/L (21.0-32.0); CALCIUM 7.4 MG/DL (8.5-10.1); CREATININE 0.5 MG/DL (0.60-1.30); TROPONIN I 0.05 NG/ML (0.02-0.05)
[2017-07-20 15:36] LABS: CALCIUM-PROTEIN CORRECTED 8.1 MG/DL (8.5-10.1); TOTAL PROTEIN 5.9 GM/DL (6.4-8.2)
[2017-07-20] MEDS: ATORVASTATIN 20 MG TAB PO SCH (20:43)
[2017-07-20] MEDS: LATANOPROST 0.005% OPHT SOLN 2.5 ML BTL EACH EYE SCH (20:47)
[2017-07-21] VITALS: BP 142/70; PULSE 79; RESP 16; TEMP 97.6; O2SAT 98
[2017-07-21] MEDS ORDERED: PHARMACY ORDERED LAB ONE (04:45)
[2017-07-21 08:00] VITALS: BP 122/62; PULSE 73; RESP 16; TEMP 97.9; O2SAT 97
[2017-07-21] MEDS: DOCUSATE SODIUM 50 MG/SENNA 8.6 MG TAB PO SCH (09:00)
[2017-07-21] MEDS: TIOTROPIUM BROMIDE 18 MCG INH INH SCH (09:00)
[2017-07-21] MEDS: PILOCARPINE HCL 1% OPHT SOLN 15 ML BTL EACH EYE SCH ×2 (09:00→13:00)
[2017-07-21] MEDS: BUDESONIDE-FORMOTEROL 160/4.5 MCG INHALER INH SCH (09:00)
[2017-07-21] MEDS: DOCUSATE SODIUM 100 MG CAP PO SCH (09:00)
[2017-07-21] MEDS: BRIMONIDINE TARTRATE 0.15% OPHT SOLN 5 ML BTL EACH EYE SCH ×2 (09:38→13:00)
[2017-07-21] MEDS: DORZOLAMIDE 2% OPTH SOLN 200 DROP/10 ML BTLO EACH EYE SCH ×2 (09:38→13:00)
[2017-07-21] MEDS: SODIUM CHLORIDE 0.9% FLUSH 10 ML FLUSH IV FLUSH SCH (09:41)
[2017-07-21] MEDS: ENOXAPARIN SODIUM 40 MG/0.4 ML SYRINGE SQ SCH (09:43)
[2017-07-21] MEDS: predniSONE 10 MG TAB PO SCH (09:44)
[2017-07-21] MEDS: METOPROLOL SUCCINATE 50 MG EXTENDED RELEASE TAB PO SCH (09:45)
[2017-07-21] MEDS: ASPIRIN EC 81 MG TABEC PO SCH (09:45)
[2017-07-21 11:20] VITALS: O2SAT 95
--- NOTE | 2017-07-21 11:30 | HHI.DCPOC ---
Discharge Care Plan Diagnosis: (1) COPD with acute exacerbation Goals to Promote Your Health * To prevent worsening of your condition and complications * To maintain your health at the optimal level Directions to Meet Your Goals Take your medications as prescribed Follow your dietary instruction Follow activity as directed Keep your appointments as scheduled Take your immunizations and boosters as scheduled If your symptoms worsen call your PCP, if no PCP go to Urgent Care Center or Emergency Room Smoking is Dangerous to Your Health. Avoid second hand smoke Call the 24-hour hour crisis hotline for domestic abuse at Karolyn Escobedo MD Jul 21, 2017 11:30
[2017-07-21] MEDS ORDERED: PRED10 PO (11:32)
[2017-07-21] MEDS ORDERED: COMMODE BEDSIDE1 MI1 (11:33)
--- NOTE | 2017-07-21 11:34 | HHI.DS ---
Discharge Summary Admission Date Jul 18, 2017 at 03:38 Discharge Date: Jul 21, 2017 Admitting Diagnosis sepsis, COPD with acute exacerbation, hypoxemia (1) COPD with acute exacerbation ICD Code: J44.1 - Chronic obstructive pulmonary disease with (acute) exacerbation Status: Acute (2) HTN (hypertension) ICD Code: I10 - HTN (hypertension) Status: Acute (3) Leukocytosis ICD Code: D72.829 - Elevated white blood cell count, unspecified (4) Hypokalemia ICD Code: E87.6 - Hypokalemia Procedures None Brief History - From Admission This patient is a 76-year-old gentleman with a history of COPD. Worsening over the last several years he has developed intolerance to albuterol. Since that time he has been not going well. He has had pneumonia and bronchitis and has been on antibiotics and steroids. Patient has come to the emergency room with complaints of increased shortness of breath. The patient says that he has increased dyspnea on exertion and has had some minimal sputum. He thinks every time he decreases his steroids his symptoms get worse. Recently has been on between 5 and 10 mg of prednisone. 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 He follows up at the [facility] there he says he gets significant bronchospasm with albuterol and no longer is able to take nebulizer and or handheld inhaler although he is adherent with Spiriva and Symbicort. Patient comes to the emergency room and was hypoxemic. This seemed to improved CBC/BMP: 07/20/17 1349 07/20/17 1349 Significant Findings Laboratory Tests Test 07/19/17 05:30 07/20/17 13:49 White Blood Count 22.8 TH/MM3 (4.0-11.0) 17.9 TH/MM3 (4.0-11.0) Red Blood Count 3.91 MIL/MM3 (4.50-5.90) 4.27 MIL/MM3 (4.50-5.90) Hemoglobin 12.0 GM/DL (13.0-17.0) Hematocrit 36.4 % (39.0-51.0) Neutrophils (%) (Auto) 92.1 % (16.0-70.0) 95.3 % (16.0-70.0) Lymphocytes (%) (Auto) 3.0 % (9.0-44.0) 2.5 % (9.0-44.0) Neutrophils # (Auto) 21.0 TH/MM3 (1.8-7.7) 17.1 TH/MM3 (1.8-7.7) Lymphocytes # (Auto) 0.7 TH/MM3 (1.0-4.8) 0.4 TH/MM3 (1.0-4.8) Monocytes # (Auto) 1.1 TH/MM3 (0-0.9) Blood Urea Nitrogen 19 MG/DL (7-18) Random Glucose 131 MG/DL (74-106) 107 MG/DL (74-106) Total Protein 5.6 GM/DL (6.4-8.2) 5.9 GM/DL (6.4-8.2) Albumin 2.2 GM/DL (3.4-5.0) Calcium Level 7.5 MG/DL (8.5-10.1) 7.4 MG/DL (8.5-10.1) Aspartate Amino Transf (AST/SGOT) 12 U/L (15-37) Chloride Level 109 MEQ/L (98-107) 112 MEQ/L (98-107) Creatinine 0.50 MG/DL (0.60-1.30) Potassium Level 3.3 MEQ/L (3.5-5.1) Protein Corrected Calcium 8.1 MG/DL (8.5-10.1) Imaging Last Impressions CT Angiography 07/18/17 6874 Signed Impressions: Service Date/Time: Tuesday, July 18, 2017 04:13 - CONCLUSION: 1. There is no evidence for PE for technique. 2. Tiny pericardial effusion and slight infiltrate within lingula. 3. Left lower lobe nodule, repeat noncontrast chest CT is suggested in 6 months as a conservative follow up. Kira David MD Chest X-Ray 07/18/17 0115 Signed Impressions: Service Date/Time: Tuesday, July 18, 2017 01:46 - CONCLUSION: No acute cardiopulmonary disease. Kira David MD PE at Discharge GENERAL: This is a well-nourished, well-developed patient, in no apparent distress. CARDIOVASCULAR: Regular rate and rhythm without murmurs, gallops, or rubs. RESPIRATORY: Clear to auscultation. Breath sounds equal bilaterally. No wheezes , rales, or rhonchi. GASTROINTESTINAL: Abdomen soft, non-tender, nondistended. Normal active bowel sounds MUSCULOSKELETAL: Extremities without clubbing, cyanosis, or edema. NEURO: Alert & Oriented x4 to person, place, time, situation. Moves all ext x4 Pt update on day of discharge Patient seen today in follow-up for discharge planning. Patient with known COPD exacerbation. Unable to tolerate Atrovent. Discharge plans discussed with patient and family Hospital Course Patient is a 76-year-old woman with intolerance albuterol Neb COPD exacerbation. He was tried with Atrovent with similar bronchospasms. Unfortunately the patient did also qualify for oxygen and this was arranged. He was discharged on steroids. He did have consultation by pulmonary team recommended that he continue his oxygen, Spiriva and Symbicort. Considerations also should be made for treating anxiety as an outpatient. Pt Condition on Discharge: Good Discharge Disposition: Discharge Home Discharge Time: <= 30 minutes Discharge Instructions DIET: Follow Instructions for: As Tolerated, No Restrictions Activities you can perform: Regular-No Restrictions Follow up Referrals: PCP Follow-up - 1 Week New Medications: Commode Bedside (Commode Bedside) 1 Mis Mis EA .XX DIRECTED, #1 0 Refills Doxycycline Hyclate (Doxycycline Hyclate) 100 Mg Cap 100 MG PO BID for Infection, #20 CAP 0 Refills Oxygen (O2) (Oxygen (O2)) Device LITER EUSEBIA.CANULA CONTINUOUS for Prevent Hypoxemia, #3 Oxygen Concentrator Portable Gaseous 3 L/min via Nasal Canula Continuous For 99 months Prednisone (Prednisone) 10 Mg Tab 30 MG PO DAILY for Inflammation, #20 TAB Take 30 mg a day for 3 days then 20 mg a day for 3 days then 10 mg day for 3 days then stop Continued Medications: Aspirin DR (Aspirin EC) 81 Mg Tabdr 81 MG PO DAILY, TAB 0 Refills Atorvastatin (Atorvastatin) 20 Mg Tab 20 MG PO HS for Cholesterol Management, #30 TAB 0 Refills Brimonidine Opth Drops (Brimonidine Opth Drops) 0.15% Soln 1 DROP EACH EYE TID for Intraocular pressure, #1 BOTTLE 0 Refills Budesonide-Formoterol Inh (Symbicort Inh) 160-4.5 Mcg/Act Aero 2 PUFF INH Q12HR, #1 INHALER 0 Refills Docusate Sodium (Docusate Sodium) 100 Mg Cap 100 MG PO BID for Prevent Constipation, #60 CAP 0 Refills Dorzolamide Opth Drops (Dorzolamide Opth Drops) 2% Soln 1 DROP EACH EYE TID for Glaucoma, #1 BOTTLE 0 Refills Guaifenesin (Guaifenesin) 400 Mg Tab 400 MG PO BID Latanoprost Opth Drops (Latanoprost Opth Drops) 0.005% Drops 1 DROP EACH EYE HS for Glaucoma, #2.5 ML 0 Refills Refrigerate until opened. Metoprolol Succinate ER 24 HR (Toprol XL) 50 Mg Tab 50 MG PO DAILY, #30 TAB 0 Refills Pilocarpine Opth 1% (Pilocarpine Opth 1%) 1 % Soln 1 DROP EACH EYE TID for Glaucoma, #1 BOTTLE 0 Refills Tiotropium Inh (Spiriva Handihaler) 18 Mcg Cap 18 MCG INH DAILY for COPD, #30 CAP 0 Refills 1 capsule = 18 mcg Discontinued Medications: Prednisone (Prednisone) 10 Mg Tab 10 MG PO DAILY, TAB 0 Refills Karolyn Escobedo MD Jul 21, 2017 11:34
--- NOTE | 2017-07-21 22:28 | MD ---
cc: Ethan HUSAIN M.D. ADMISSION DATE: 07/18/2017 DISCHARGE DATE: 07/21/2017 BRIEF HISTORY: Mr. Garcia is a 76-year-old white male longstanding history of COPD followed here locally by a primary care physician to the [facility] and then in [place] by a [facility]. He has been on Spiriva and Symbicort as a routine. He had recently had pneumonia had been followed up at the [facility] in [place] about 2 weeks ago, that was clearing but he was on a slow tapering course of prednisone and improving. He then began to get more short of breath, has difficulty because he does not have any type of rescue medication and so came into the emergency room for evaluation. On presentation he had a CTA which revealed no evidence of pulmonary embolism, a very slight lingular density and a small nodule in the left lung of no immediate consequence but should be followed up in light of the prior smoking history. The patient was admitted for further evaluation and therapy. His pulmonary status has actually been remarkably stable. Because he has some type of reaction to albuterol and has not tolerated that in the past, we tried ipratropium bromide and aerosol and he tolerated that very well with relief. I suggested [facility] as he may be able to get that either in aerosol form or in an MDI as a rescue inhaler in place of albuterol. We also continued his Symbicort and Spiriva. We have gave him IV steroids and oxygen, and he has been stable. In fact on room air at rest, his O2 sat is 96% but with exertion he drops into the mid 80s. I will switch him over to oral prednisone today at 30 mg. Continue his inhalers, aerosol with Atrovent as needed. Pulmonary status at this point is stable. I suggested that he get in touch with his local [facility] physician on discharge and then his [facility] as well. Will go over the new oxygen prescription and the use of Atrovent as a rescue inhaler. I will not see him regularly in the hospital now unless the need arises in which case please give me a call. MD MILENA Aguila/EUSEBIA /11:54 AM /10:04 PM
== END 2017-07-21 15:17 | disposition home or self-care (01) | DRG 192 ==
LOC: PHED 01:10 → PHEDA 03:38 → PHICU 05:22 → PH3A 07-20 18:27
PROVIDERS: ADMIT Hospitalist; ATTEND Hospitalist
PROC: 3E0F7GC Introduction of Other Therapeutic Substance into Respiratory Tract, Via Natural or Artificial Opening (ICD-10-PCS; principal; 2017-07-18)
DX: J44.1 Chronic obstructive pulmonary disease with (acute) exacerbation (principal); I10 Essential (primary) hypertension; R09.02 Hypoxemia; Z87.891 Personal history of nicotine dependence; I25.2 Old myocardial infarction; R91.1 Solitary pulmonary nodule; E87.6 Hypokalemia; H40.9 Unspecified glaucoma; Z79.82 Long term (current) use of aspirin; Z79.01 Long term (current) use of anticoagulants
CPT/HCPCS: 36600; 71046; 71275; 80048; 80053; 81001; 82805; 83605; 83735; 84155; 84484; 85007; 85025; 85027; 87040; 87641; 87804; 93005; 94618; 94640; 94664; J0692; J1650; J2920; J3370; J7030; J7050; J7512; J7644; Q9967